=== PATIENT | female | born 1995 | race American Indian/Alaskan Native ===

== ENCOUNTER 2017-12-02 15:47 | Emergency (ER) | payer SELFPAY ==
[2017-12-02 15:57] VITALS: BP 121/68
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
== END 2017-12-02 17:55 | disposition left against medical advice (07) ==
LOC: ED 15:47
DX: R10.30 Lower abdominal pain, unspecified (principal); Z53.21 Procedure and treatment not carried out due to patient leaving prior to being seen by health care provider

== ENCOUNTER 2017-12-21 17:51 | Emergency (ER) | payer MEDICAID ==
[2017-12-21 20:11] VITALS: BP 120/77
[2017-12-21 20:29] LABS: Basophils % (Auto) 0.3 % (0.0-1.8); Eosinophils % (Auto) 0.6 % (0.0-4.3); Hematocrit 34.2 % (30.3-42.9); Hemoglobin 11.4 gm/dl (10.1-14.3); Lymphocytes # (Auto) 2.7 K/mm3 (1.2-5.4); Lymphocytes % (Auto) 31.4 % (13.4-35.0); Mean Corpuscular HGB Conc 33 % (30-34); Mean Corpuscular Hemoglobin 28 pg (28-32); Mean Corpuscular Volume 84 fl (79-97); Monocytes # (Auto) 0.7 K/mm3 (0.0-0.8); Monocytes % (Auto) 8.8 % (0.0-7.3); Platelet Count 200 K/mm3 (140-440); Red Blood Count 4.07 M/mm3 (3.65-5.03); Red Cell Distribution Width 14.7 % (13.2-15.2)
--- NOTE | 2017-12-21 22:10 | Emergency Department Report ---
ED General Adult HPI - General Chief complaint: Abdominal Pain Stated complaint: 13WKS PREG/FALL Time Seen by Provider: 12/21/17 21:57 Source: patient Mode of arrival: Ambulatory Limitations: No Limitations - History of Present Illness Initial comments: Ms. Del Valle is a healthy 22-year-old female who is approximately 13 weeks . Last menstrual period 09/12/2017. EGA 14 w 2 days. She has had erratic appetite. Mild nausea. She fell 2 days ago. She has mild bilateral flank pain. She desires to have baby "checked out". No care. - Related Data Home Medications Medication Instructions Recorded Confirmed Last Taken No Known Home Medications [No 11/06/14 11/06/14 Unknown Reported Home Medications] Allergies Allergy/AdvReac Type Severity Reaction Status Date / Time No Known Allergies Allergy Verified 12/02/17 15:52 ED Review of Systems ROS: Stated complaint: 13WKS PREG/FALL Other details as noted in HPI ED Past Medical Hx - Past Medical History Additional medical history: ANEMIA - Surgical History Past Surgical History?: No - Social History Smoking Status: Current Every Day Smoker Substance Use Type: None - Medications Home Medications: Home Medications Medication Instructions Recorded Confirmed Last Taken Type No Known Home Medications [No 11/06/14 11/06/14 Unknown History Reported Home Medications] ED Physical Exam - General Limitations: No Limitations General appearance: alert, in no apparent distress - Head Head exam: Present: atraumatic, normocephalic - Eye Eye exam: Present: normal appearance - ENT ENT exam: Present: mucous membranes moist - Neck Neck exam: Present: normal inspection - Respiratory Respiratory exam: Present: normal lung sounds bilaterally. Absent: respiratory distress, wheezes, rales, rhonchi - Cardiovascular Cardiovascular Exam: Present: regular rate, normal rhythm. Absent: systolic murmur, diastolic murmur, rubs, gallop - GI/Abdominal GI/Abdominal exam: Present: soft, normal bowel sounds. Absent: distended, tenderness, guarding, rebound - Extremities Exam Extremities exam: Present: normal inspection - Back Exam Back exam: Present: normal inspection - Neurological Exam Neurological exam: Present: alert, oriented X3 - Psychiatric Psychiatric exam: Present: normal affect, normal mood - Skin Skin exam: Present: warm, dry, intact, normal color. Absent: rash ED Course Vital Signs 12/21/17 20:06 Temperature 98.5 F Pulse Rate 97 H Respiratory 16 Rate Blood Pressure 120/77 O2 Sat by Pulse 100 Oximetry ED Medical Decision Making - Lab Data Result diagrams: 12/21/17 20:22 - Medical Decision Making Francoise is 14 weeks 2 days presents which is corroborated by US. IUP with FHR 147 bpm Patient given reassurance. No evidence of injury from fall. dc'd home with ob referral Critical care attestation.: If time is entered above; I have spent that time in minutes in the direct care of this critically ill patient, excluding procedure time. ED Disposition Clinical Impression: , Fall Disposition: DC-01 TO HOME OR SELFCARE Is pt being admited?: No Does the pt Need Aspirin: No Condition: Stable Instructions: (ED) Forms: Work/School Release Form(ED) Time of Disposition: 22:12
--- NOTE | 2017-12-22 | Ultrasound Report ---
FINAL REPORT PROCEDURE: US OB > = 14 WEEKS FETUS TECHNIQUE: Real-time transabdominal sonography of the uterus, placenta, amniotic fluid, adnexa, and fetus was performed with image documentation. Measurements were obtained to determine age/size. M-mode Doppler was used to document heartbeat. CPT 24884 HISTORY: abdominal pain COMPARISON: No prior studies are available for comparison. FINDINGS: ADDITIONAL GESTATION: None. GENERAL: IUP: Single living intrauterine . Position: Variable Placental position: Anterior with grade 0 maturity, without previa. Amniotic fluid volume: Normal. MATERNAL: Uterus: Within normal limits. Cervical length: 3.3 cm. Internal Os: Closed. FETUS: Heart rate and rhythm: 147 beats per minute. Irregular. MEASUREMENTS: BPD: 2.7 centimeters corresponding to 14 weeks and 5 days HC: 9.9 centimeters corresponding to 14 weeks and 4 days AC: 8.2 centimeters corresponding to 14 weeks and 4 days FL: 1.4 centimeters corresponding to 14 weeks and 2 days Mean Gestational Age (composite criteria): 14 weeks and 3 days Ratio biometry: Normal. Estimated Due Date: 06/18/2018 IMPRESSION: Single intrauterine gestation at 14 weeks and 3 days. Estimated due date: 06/18/2018
== END 2017-12-21 22:49 | disposition home or self-care (01) ==
LOC: ED 17:51
DX: O26.892 Other specified pregnancy related conditions, second trimester (principal); R10.9 Unspecified abdominal pain; R11.0 Nausea; F17.200 Nicotine dependence, unspecified, uncomplicated; Z3A.14 14 weeks gestation of pregnancy
CPT/HCPCS: 36415; 76805; 84702; 85025; 99284

== ENCOUNTER 2018-05-13 14:14 | Outpatient (CLI) | payer MEDICAID ==
[2018-05-13 14:30] VITALS: BP 117/59
[2018-05-13] MEDS ORDERED: LACTATED RINGERS 500 ML IV ONE (14:45)
[2018-05-13 15:27] LABS: Bacteria,Urine 1+ /HPF (Negative); Bilirubin,Urine NEG (Negative); Blood,Urine NEG (Negative); Color,Urine Yellow (Yellow); Mucus,Urine FEW /HPF; Protein,Urine <15 mg/dL mg/dL (Negative); Urobilinogen,Urine < 2.0 mg/dL (<2.0)
== END 2018-05-13 16:23 | disposition home or self-care (01) ==
LOC: TRG 14:14
PROVIDERS: ATTEND Obstetrics & Gynecology
DX: O47.03 False labor before 37 completed weeks of gestation, third trimester (principal); O99.333 Smoking (tobacco) complicating pregnancy, third trimester; Z3A.35 35 weeks gestation of pregnancy
CPT/HCPCS: 59025; 81001

== ENCOUNTER 2018-05-17 09:41 | Outpatient (CLI) | payer MEDICAID ==
[2018-05-17 10:21] LABS: Bilirubin,Urine NEG (Negative); Blood,Urine NEG (Negative); Color,Urine Yellow (Yellow); Mucus,Urine FEW /HPF; Protein,Urine <15 mg/dL mg/dL (Negative); Urobilinogen,Urine < 2.0 mg/dL (<2.0)
[2018-05-17 10:25] VITALS: BP 120/65
[2018-05-17 10:31] LABS: Amphetamine Screen,Urine PRESUMPTIVE NEGATIVE; Benzodiazepines Screen,Urine PRESUMPTIVE NEGATIVE; Cocaine Screen,Urine PRESUMPTIVE NEGATIVE; Methadone Screen,Urine PRESUMPTIVE NEGATIVE; Opiate Screen,Urine PRESUMPTIVE NEGATIVE
[2018-05-17 10:46] LABS: Cannabinoid Screen,Urine PRESUMPTIVE POSITIVE
== END 2018-05-17 10:35 | disposition home or self-care (01) ==
LOC: TRG 09:41
PROVIDERS: ATTEND Obstetrics & Gynecology
DX: O47.03 False labor before 37 completed weeks of gestation, third trimester (principal); Z3A.36 36 weeks gestation of pregnancy
CPT/HCPCS: 59025; 80307; 81001